=== PATIENT | female | born 1940 | race Caucasian/White ===

== ENCOUNTER 2017-01-04 01:00 | Inpatient (IN) | payer OTHER ==
[2017-01-04] VITALS (8 sets, daily range): BP systolic 108–168; BP diastolic 49–87
[~2017-01-04] VITALS: Ht 167.6 cm; Wt 90.6 kg
[2017-01-04] MEDS ORDERED: ASPIR 8181 MG PO (01:09)
[2017-01-04] MEDS ORDERED: AMLODIPINE BESY10 MG PO (01:09)
[2017-01-04] MEDS ORDERED: LISINOPRIL10 MG PO (01:09)
[2017-01-04] MEDS ORDERED: CALCIUM LACTAT100 MG PO (01:10)
[2017-01-04] MEDS ORDERED: FISH OIL 1,001000 M2 PO (01:10)
[2017-01-04] MEDS ORDERED: FENOFIBRATE160 MG PO (01:11)
[2017-01-04 01:33] LABS: URINE BILIRUBIN NEGATIVE (Negative); URINE BLOOD NEGATIVE (Negative); URINE COLOR YELLOW; URINE GLUCOSE-RANDOM* NEGATIVE (Negative); URINE KETONES NEGATIVE (Negative); URINE LEUKOCYTES-REFLEX NEGATIVE (Negative); URINE PROTEIN (DIPSTICK) NEGATIVE (Negative); URINE UROBILINOGEN 0.2 E.U./dl (0.2-1.0)
[2017-01-04 01:34] LABS: ABSOLUTE NEUTROPHILS 12.6 thou/uL (1.4-8.2); BASOPHILS 0.6 % (0.0-2.0); EOSINOPHILS 0.5 % (0.0-3.0); HEMATOCRIT 43.9 % (37.0-47.0); HEMOGLOBIN 14.7 gm/dL (12.0-15.0); LYMPHOCYTES 11.2 % (24.0-44.0); MCHC 33.4 g/dL (28.0-37.0); MCV 83.8 fL (80.0-100.0); MONOCYTES 7.1 % (1.0-8.0); PLATELET COUNT 300 thou/uL (150-400); POLYS 80.6 % (36.0-66.0); RBC 5.24 mil/uL (4.20-5.00); RDW 14.1 % (10.5-14.5); WBC 15.6 thou/uL (4.0-11.0)
[2017-01-04 01:36] LABS: MANUAL DIFF NO
[2017-01-04 01:47] LABS: CALCIUM 8.3 mg/dL (8.5-10.1); CREATININE 0.7 mg/dL (0.6-1.0); POTASSIUM 3.7 mmol/L (3.5-5.1)
[2017-01-04 01:53] LABS: ALBUMIN 3.2 g/dL (3.4-5.0); TOTAL BILIRUBIN 0.7 mg/dL (<0.1-1.0)
[2017-01-04 07:49] LABS: CALCIUM 9.2 mg/dL (8.5-10.1); CREATININE 0.7 mg/dL (0.6-1.0)
[2017-01-05 04:30] VITALS: BP 157/76
[2017-01-05 05:52] LABS: ABSOLUTE NEUTROPHILS 6.8 thou/uL (1.4-8.2); BASOPHILS 0.7 % (0.0-2.0); HEMOGLOBIN 13.3 gm/dL (12.0-15.0); LYMPHOCYTES 15.2 % (24.0-44.0); MCHC 33.2 g/dL (28.0-37.0); MCV 84.4 fL (80.0-100.0); MONOCYTES 7.7 % (1.0-8.0); PLATELET COUNT 244 thou/uL (150-400); POLYS 75.4 % (36.0-66.0); RBC 4.74 mil/uL (4.20-5.00); RDW 14.1 % (10.5-14.5)
[2017-01-05 05:53] LABS: MANUAL DIFF NO
[2017-01-05 06:09] LABS: ALBUMIN 3.2 g/dL (3.4-5.0); CALCIUM 8.9 mg/dL (8.5-10.1); CREATININE 0.8 mg/dL (0.6-1.0); MAGNESIUM 2.1 mg/dL (1.8-2.4); TOTAL BILIRUBIN 0.7 mg/dL (<0.1-1.0); TOTAL PROTEIN 6.8 g/dL (6.4-8.2)
[2017-01-05 08:51] VITALS: BP 154/84
[2017-01-05] MEDS ORDERED: PROTONIX40 M1 PO (10:02)
[2017-01-05] MEDS ORDERED: FLAGYL500 MG PO (10:02)
[2017-01-05] MEDS ORDERED: CIPRO500 MG PO (10:02)
[2017-01-05 10:16] VITALS: BP 154/84
== END 2017-01-05 11:28 | disposition home or self-care (01) | DRG 392 ==
LOC: ER 01:00 → EROBS 03:36 → 3W 03:36 → ENTRNSPT 01-05 11:18 → EDTRNSPTSTS 01-05 11:21 → 3W 01-05 11:28
PROVIDERS: Emergency Medicine; Nurse Practitioner
DX: K57.32 Diverticulitis of large intestine without perforation or abscess without bleeding (principal); E87.1 Hypo-osmolality and hyponatremia; I10 Essential (primary) hypertension; Z66 Do not resuscitate; E78.5 Hyperlipidemia, unspecified; H26.9 Unspecified cataract; Z90.49 Acquired absence of other specified parts of digestive tract; Z90.89 Acquired absence of other organs; Z90.710 Acquired absence of both cervix and uterus; Z87.891 Personal history of nicotine dependence; Z82.49 Family history of ischemic heart disease and other diseases of the circulatory system
CPT/HCPCS: 10779